=== PATIENT | male | born 1995 | race African-American/Black ===

== ENCOUNTER 2018-03-18 22:56 | Emergency (ER) | payer OTHER ==
[~2018-03-18] VITALS: Ht 188 cm; Wt 173.6 kg
[2018-03-18 23:27] LABS: HEMATOCRIT 43.8 % (38.0-50.0); HEMOGLOBIN 14.7 G/DL (12.5-16.6); MCHC 33.6 G/DL (30.0-36.0); MCV 86.4 FL (86-99); PLATELET COUNT 302 K/uL (156-360); RBC DIS.WIDTH-CV 14.1 % (11.8-14.6); RBC DIS.WIDTH-SD 44.6 % (39-53); RED BLOOD COUNT 5.07 M/uL (4.00-5.50); WHITE BLOOD COUNT 7.9 K/uL (4.1-10.2)
[2018-03-18 23:37] LABS: CHLORIDE 103 mEq/L (99-109); SODIUM 139 mEq/L (136-147)
[2018-03-18 23:39] LABS: GLUCOSE 130 mg/dL (70-99)
[2018-03-18 23:42] LABS: GFR ESTIMATE (CALCULATED) > 59 mL/min/ (58.99-99999)
[2018-03-18 23:43] LABS: UREA NITROGEN (BUN) 11 mg/dL (9-23)
[2018-03-19 01:55] LABS: SERUM ETHYL ALCOHOL < 10 mg/dL
[2018-03-19 01:55] LABS: APPEARANCE CLEAR ((CLEAR)); BILIRUBIN NEGATIVE; BLOOD NEGATIVE; COLOR YELLOW ((YELLOW)); GLUCOSE (STRIP) NEGATIVE; KETONES NEGATIVE; LEUKOCYTES NEGATIVE; NITRITE NEGATIVE; PROTEIN (STRIP) NEGATIVE; SPECIFIC GRAVITY 1.026 (1.000-1.030); UCUL ADDED? NO
[2018-03-19 01:58] LABS: CREATINE KINASE 237 IU/L (1-294)
[2018-03-19 02:11] LABS: AMPHETAMINE NEGATIVE (500 ng/mL); BARBITURATES NEGATIVE (200 ng/mL); BENZODIAZEPINES NEGATIVE (150 ng/mL); BUPRENORPHINE NEGATIVE (10 ng/mL); COCAINE NEGATIVE (150 ng/mL); METHADONE NEGATIVE (200 ng/mL); METHAMPHETAMINE NEGATIVE (500 ng/mL); OPIATES (MORPHINE) NEGATIVE (100 ng/mL); OXYCODONE NEGATIVE (100 ng/mL); PHENCYCLIDINE NEGATIVE (25 ng/mL); PROPOXYPHENE NEGATIVE (300 ng/mL); THC CANNABINOIDS NEGATIVE (50 ng/mL); TRICYCLIC ANTIDEPRESSANTS NEGATIVE (300 ng/mL)
[2018-03-19 03:12] VITALS: BP 146/87
== END 2018-03-19 03:12 | disposition home or self-care (01) ==
LOC: EME 22:56
PROVIDERS: Emergency Medicine
DX: R56.9 Unspecified convulsions (principal); R06.00 Dyspnea, unspecified
CPT/HCPCS: 70450; 71046; 80048; 81003; 82550; 85027; 93005; 99281; 99284; G0480